=== PATIENT | female | born 1960 | race Asian ===

== ENCOUNTER 2019-01-01 14:01 | Emergency (ER) | payer BC ==
[~2019-01-01] VITALS: Ht 162.6 cm; Wt 59.4 kg
[2019-01-01 14:06] VITALS: Ht 162.6 cm; Wt 59.4 kg
[2019-01-01 18:48] VITALS: BP 135/69
== END 2019-01-01 18:48 | disposition home or self-care (01) ==
LOC: ED 14:01
DX: S16.1XXA Strain of muscle, fascia and tendon at neck level, initial encounter (principal); Z90.49 Acquired absence of other specified parts of digestive tract; W18.09XA Striking against other object with subsequent fall, initial encounter; Y93.89 Activity, other specified; Y92.89 Other specified places as the place of occurrence of the external cause; Y99.8 Other external cause status

== ENCOUNTER 2020-03-25 06:21 | Emergency (ER) | payer BC, SELFPAY ==
[~2020-03-25] VITALS: Ht 154.9 cm; Wt 52.6 kg
[2020-03-25 06:23] VITALS: Ht 154.9 cm; Wt 52.6 kg
[2020-03-25 08:38] VITALS: BP 123/69
== END 2020-03-25 08:38 | disposition home or self-care (01) ==
LOC: ED 06:21
DX: U07.1 COVID-19 (principal); J12.82 Pneumonia due to coronavirus disease 2019; E03.9 Hypothyroidism, unspecified; K21.9 Gastro-esophageal reflux disease without esophagitis; Z98.890 Other specified postprocedural states